=== PATIENT | male | born 1960 | race Caucasian/White ===

== ENCOUNTER 2016-07-19 11:42 | Outpatient (CLI) ==
[2016-07-19 13:25] LABS: ALBUMIN/GLOBULIN RATIO 1.05; ANION GAP 15.5; BILIRUBIN,TOTAL 0.74 mg/dL (0.00-1.20); BUN/CREATININE RATIO 12.76; CALCIUM 9.7 mg/dL (8.2-10.2); CHOL/HDL RATIO 4.7 (4.5-6.4); CREATININE 0.94 mg/dL (0.60-1.10); POTASSIUM 4.5 mmol/L (3.5-5.1); TOTAL PROTEIN 7.8 g/dL (6.4-8.2)
== END 2016-07-19 11:43 | disposition home or self-care (01) ==
LOC: LAB 11:42
PROVIDERS: ATTEND Nurse Practitioner Family
DX: E11.9 Type 2 diabetes mellitus without complications (principal)
CPT/HCPCS: 36415; 80053; 80061; 83036

== ENCOUNTER 2017-01-31 13:13 | Outpatient (CLI) ==
[2017-01-31 13:31] LABS: BASOPHILS # (AUTO) 0.1 K/uL (0-0.2); BASOPHILS % (AUTO) 0.8 % (0.0-3.0); EOSINOPHILS # (AUTO) 0.2 K/ul (0.0-0.7); EOSINOPHILS % (AUTO) 1.7 % (0.0-7.0); HEMATOCRIT 43.2 % (42.0-52.0); HEMOGLOBIN 15.1 g/dl (14.0-18.0); IMMATURE GRANULOCYTE % (AUTO) 0.3 % (0.0-5.0); LYMPHOCYTES # (AUTO) 2.1 K/uL (0.60-3.4); LYMPHOCYTES % (AUTO) 22.3 (10.0-50.0); MEAN CORPUSCULAR HEMOGLOBIN 28.9 pg (27.0-31.0); MEAN CORPUSCULAR VOLUME 82.6 fl (80.0-94.0); MONOCYTES # (AUTO) 0.7 K/uL (0.4-2.0); MONOCYTES % (AUTO) 7.6 (0-10); NEUTROPHILS # (AUTO) 6.2 K/ul (2.0-6.9); NEUTROPHILS % (AUTO) 67.3; PLATELET COUNT 368 10^3/uL (140-440); RED BLOOD COUNT 5.23 10^6/ul (4.70-6.10); WHITE BLOOD COUNT 9.18 K/ul (4.2-10.2)
[2017-01-31 13:46] LABS: ALBUMIN/GLOBULIN RATIO 0.98; ANION GAP 15.4; BILIRUBIN,TOTAL 0.42 mg/dL (0.00-1.20); BUN/CREATININE RATIO 15.74; CALCIUM 10.3 mg/dL (8.2-10.2); CHOL/HDL RATIO 4.6 (4.5-6.4); CREATININE 1.08 mg/dL (0.60-1.10); POTASSIUM 4.4 mmol/L (3.5-5.1); TOTAL PROTEIN 8.1 g/dL (6.4-8.2)
== END 2017-01-31 13:14 | disposition home or self-care (01) ==
LOC: LAB 13:13
PROVIDERS: ATTEND Nurse Practitioner Family
DX: E11.9 Type 2 diabetes mellitus without complications (principal); I10 Essential (primary) hypertension
CPT/HCPCS: 36415; 80053; 80061; 83036; 85025

== ENCOUNTER 2017-04-12 12:24 | Outpatient (CLI) | END 2017-04-12 12:25 | disposition short-term general hospital (02) | LOC: AMBL 12:24 | PROVIDERS: ATTEND Internal Medicine | DX: R40.4 Transient alteration of awareness (principal); R41.0 Disorientation, unspecified; R73.9 Hyperglycemia, unspecified; Z72.89 Other problems related to lifestyle ==

== ENCOUNTER 2017-07-17 13:08 | Outpatient (CLI) | END 2017-07-17 13:09 | disposition home or self-care (01) | LOC: FCC-LAB 13:08 | PROVIDERS: ATTEND Nurse Practitioner Family | DX: E78.5 Hyperlipidemia, unspecified (principal); E11.9 Type 2 diabetes mellitus without complications; I10 Essential (primary) hypertension | CPT/HCPCS: 36415; 80053; 80061; 83036; 85025 ==

== ENCOUNTER 2017-12-05 10:52 | Outpatient (CLI) | END 2017-12-05 10:53 | disposition home or self-care (01) | LOC: FCC-LAB 10:52 | PROVIDERS: ATTEND Family Medicine | DX: E11.9 Type 2 diabetes mellitus without complications (principal); E78.00 Pure hypercholesterolemia, unspecified | CPT/HCPCS: 36415; 80053; 80061; 82043; 83037; 85025 ==

== ENCOUNTER 2018-06-06 09:15 | Outpatient (CLI) | END 2018-06-06 09:16 | disposition home or self-care (01) | LOC: RHC-LAB 09:15 → FCC-LAB 09:16 | PROVIDERS: ATTEND Family Medicine | DX: E11.65 Type 2 diabetes mellitus with hyperglycemia (principal); R53.81 Other malaise; R07.89 Other chest pain; R61 Generalized hyperhidrosis | CPT/HCPCS: 36415; 80053; 80061; 83037; 84443; 85025; 93005; 93010 ==

== ENCOUNTER 2018-06-10 11:51 | Outpatient (CLI) | END 2018-06-10 11:52 | disposition home or self-care (01) | LOC: RHC-LAB 11:51 → FCC-LAB 11:52 | PROVIDERS: ATTEND Family Medicine | DX: D72.829 Elevated white blood cell count, unspecified (principal); R53.81 Other malaise; E87.5 Hyperkalemia; E83.52 Hypercalcemia; F12.90 Cannabis use, unspecified, uncomplicated | CPT/HCPCS: 80306; 87502 ==

== ENCOUNTER 2018-06-17 15:26 | Outpatient (CLI) | END 2018-06-17 15:27 | disposition home or self-care (01) | LOC: RHC-LAB 15:26 → FCC-LAB 15:27 | PROVIDERS: ATTEND Nurse Practitioner Family | DX: D72.829 Elevated white blood cell count, unspecified (principal); E87.5 Hyperkalemia | CPT/HCPCS: 36415; 80053; 85025 ==

== ENCOUNTER 2018-08-15 09:43 | Emergency (ER) ==
[2018-08-15 09:50] VITALS: BP 164/96; TEMP 98.6; BMI 38.0
--- NOTE | 2018-08-15 10:05 | ED.PDOC ---
General ED Provider: Dr. RITA CROWDER Chief Complaint: Extremity Pain/Injury Stated Complaint: 58 y old pacing in a exam room complaining for back pain and pointing with his right hand to a spot at the level of griffin iliaca superior posterior on the right side.Says that pain is radiating to his right knee, Explaining that yesterdays Toradol IM did not change the pain.Has well retained reflexesin both lower extremites,normal muscle bulk,adequate strength and ROMs. Somewhat restricted bending from standing position to touch his toes due to the reported pain in lower LS region.Possibly spondylosis if limited degree. Will do LS x ray views and pelvic/hip to assertain any possible pathology. if present. Notes from his visit yesterday to [facility] at [facility] mention a possibility of initiating a peripheral neuropathy treatment.Irvin has diabetes at various levels of xontrol kala many years,That may be a good plan.Because of his diabetic comorbidity I would reserve even an acute treatment with steroids to his PCP. Here at the ER we can offer him more acute pain control with a low dose. Dilaudid 0,5mg im.However he is encouraged to continue his PCP treatments as adviced. Time Seen by Physician: 09:55 Mode of Arrival: Walk-In Information Source: Patient Exam Limitations: No limitations Primary Care Provider: BONNIE MORENO Seen Within Last 72 Hours for Same Complaint By: Clinic Nursing and Triage Documentation Reviewed and Agree: Yes Does patient meet sepsis criteria?: No System Inflammatory Response Syndrome: Not Applicable Sepsis Protocol: For patient's 13 years and over: Temp is 96.8 and below OR 101 and greater Pulse >90 BPM Resp >20/minute Acutely Altered Mental Status Are patient's symptoms suggestive of a new infection, such as: -Pneumonia -Skin, Soft Tissue -Endocarditis -UTI -Bone, Joint Infection -Implantable Device -Acute Abdominal Infection -Wound Infection -Meningitis -Blood Stream Catheter Infection -Unknown Musculoskeletal Complaint Exam - Hip/Pelvis Complaint/Exam Location of Pain: Reports: Hip Mechanism of Injury: Reports: No known trauma Onset/Duration: two days Symptoms Are: Still present Initial Severity: Mild Current Severity: Mild Location: Reports: Discrete Character: Reports: Aching Aggravating: Reports: Movement Alleviating: Reports: Rest Related History: Reports: Similar episode Able to Bear Weight: Yes Septic Arthritis Risk Factors: Reports: None Related Surgical History: Reports: None Pelvis Palpation: Stable Tenderness: Present: Right Range of Motion Limited In: Present: Flexion NV Bundle Intact Distal to Injury: Yes Differential Diagnoses: Arthritis, Sciatica, Strain Review of Systems - Review Of Systems Constitutional: Reports: No symptoms Eyes: Reports: No symptoms Ears, Nose, Mouth, Throat: Reports: No symptoms Respiratory: Reports: No symptoms Cardiac: Reports: No symptoms GI: Reports: No symptoms : Reports: No symptoms Musculoskeletal: Reports: Back pain Skin: Reports: No symptoms Neurological: Reports: No symptoms Endocrine: Reports: No symptoms Hematologic/Lymphatic: Reports: No symptoms All Other Systems: Reviewed and Negative Past Medical History - Past Medical History Previously Healthy: No Endocrine: Reports: Unknown Cardiovascular: Reports: None Respiratory: Reports: None Hematological: Reports: None Gastrointestinal: Reports: None Genitourinary: Reports: None Neuro/Psych: Reports: None Musculoskeletal: Reports: Back Pain Cancer: Reports: None - Surgical History General Surgical History: Reports: None - Family History Family History: Reports: None - Social History Smoking Status: Former smoker Hx Substance Use: No Alcohol Screening: Occasionally - Immunizations Tetanus Shot up to Date: Yes Physical Exam - Physical Exam Appearance: Well-appearing Ill-appearing: None Pain Distress: Mild Eyes: CHRISTIAN, EOMI, Conjunctiva clear ENT: Ears normal, Nose normal, Oropharynx normal Neck: Supple Respiratory: Airway patent, Breath sounds clear Cardiovascular: RRR, Pulses normal GI/: Soft, Nontender, No masses Musculoskeletal: Normal strength Skin: Warm, Dry Neurological: Sensation intact, Motor intact, Reflexes intact, Cranial nerves intact, Alert, Oriented Psychiatric: Anxious Interpretation - Radiology Interpretation Radiology Interpretation By: Radiologist Radiology Results: No acute changes Xray Comments: Mild OA r hip;space narrowing osteophytes.Chjronic discogenic LS disease. Critical Care Note - Critical Care Note Total Time (mins): 0 Course - Course Orders, Labs, Meds: Orders Category Date Time Status Hydromorphone HCl [Dilaudid 0.5 mg/0.5 ml Syringe] MEDS 08/15/18 10:42 Discontinued 0.5 mg IVP ONCE STA HIP, RIGHT 2 VIEWS Stat RADS 08/15/18 10:31 Ordered LUMBAR SP., BENDING VIEWS ONLY Stat RADS 08/15/18 10:34 Ordered Medications Discontinued Medications Generic Name Dose Route Start Last Admin Trade Name Freq PRN Reason Stop Dose Admin Hydromorphone HCl 0.5 mg 08/15/18 10:42 08/15/18 10:52 Dilaudid 0.5 Mg/0.5 Ml Syringe IVP 08/15/18 10:43 0.5 mg ONCE STA Administration Vital Signs: Temp Pulse Resp BP Pulse Ox 08/15/18 09:44 98.6 F 107 H 16 164/96 H 97 Departure - Departure Time of Disposition: 11:29 Disposition: HOME SELF-CARE Discharge Problem: Lumbar back pain Instructions: Sciatica (ED) Condition: Stable Pt referred to PMD for follow-up: Yes IPMP verified?: No Allergies/Adverse Reactions: Allergies No Known Allergies Allergy (Verified 08/15/18 09:57) Home Medications: Ambulatory Orders Multivitamin [One Daily Multivitamin] 1 each PO DAILY 06/06/18 Disposition Discussed With: Patient, Family
[2018-08-15] MEDS ORDERED: DILAUDID 0.5 MG/0.5 ML SYRINGE IVP STA (10:42)
--- NOTE | 2018-08-15 11:11 | DI ---
EXAM: Right hip two-view HISTORY: Hip and bony pelvis pain on right COMPARISON: None FINDINGS: No fracture or dislocation. Mild osteoarthritis right hip with joint space narrowing osteo phyte formation. Surgical clips in the pelvis. IMPERSSION: 1. No fracture or dislocation. 2. Mild osteoarthritis right hip.
--- NOTE | 2018-08-15 11:13 | DI ---
EXAM: Lumbar spine four views, including flexion and extension lateral views HISTORY: Back pain COMPARISON: None FINDINGS: Sacroiliac joints intact. Sacral arcuate intact. Vertebral bodies normal height. No fra cture. Multilevel marginal osteophyte formation. Mild to moderate multilevel intervertebral disc sp aracelis narrowing, greatest at L5-S1. Multilevel facet arthrosis, advanced in the lower spine. 2 mm ant erolisthesis L4 on L5, unchanged with flexion and extension. 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 2 mm anterolisthesis L4 on L5. No segment instability.
== END 2018-08-15 11:55 | disposition home or self-care (01) ==
LOC: ED 09:43
DX: M54.5 Low back pain (principal)
CPT/HCPCS: 96374; 99283

== ENCOUNTER 2018-08-20 14:35 | Outpatient (CLI) | END 2018-08-20 14:36 | disposition home or self-care (01) | LOC: RHC-LAB 14:35 → FCC-LAB 14:36 | PROVIDERS: ATTEND Family Medicine | DX: M54.41 Lumbago with sciatica, right side (principal); G89.29 Other chronic pain | CPT/HCPCS: 80306 ==